=== PATIENT | male | born 1975 | race Caucasian/White ===

== ENCOUNTER 2016-05-15 06:02 | Emergency (ER) | payer OTHER, BC ==
[~2016-05-15 06:02] MED LIST: AMBI5TAB PO; ATOR1TAB21 PO; FISH1000 OR; GINKGO BILOBA PO; KRIL300C PO; MULTIVIT PO; SIMV40TA2 OR; TRAM50TA2 PO; VITA500T OR; ZYRT10CA PO; aleve PO; probiotics PO
[2016-05-15] MEDS ORDERED: NAPROXEN 250 MG TAB As Ordered ONE (07:13)
--- NOTE | 2016-05-15 07:52 | EDDOCDS ---
Nurse's Notes [facility] Name: Pa Ham Age: 40 yrs Sex: Male : 1975 Arrival Date: 05/15/2016 Time: 06:02 Bed I2 / M2 Private MD: Diagnosis: Sprain of unspecified site of right knee Presentation: 05/15 06:16 Presenting complaint: Patient states: that about 24 hours ago while at work slipped on cz ice twisting right knee pt finished work and went home. tonight while working pt has had increasing pain and difficulty ambulating . pt had surgery on right knee one year ago and had ACL repair pt reports pain is where his incision site is and that knee is swollen. Adult Sepsis Screening: The patient does not have new or worsening altered mentation. Patient's respiratory rate is less than 22. Systolic blood pressure is greater than 100. Patient has a qSOFA score of 0- Negative Sepsis Screen. Suicide/Homicide risk assessment- the patient denies having any suicidal and/or homicidal ideations and does not present with any other emotional, behavioral or mental health complaints. 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 Transition of care: patient was not received from another setting of care. 06:16 Acuity: DAVIDA Level 4 cz 06:16 Method Of Arrival: Walkin/Carried/Asstd cz Triage Assessment: 06:22 General: Appears uncomfortable. Pain: Location: right knee Pain currently is 6 out of cz 10 on a pain scale. Pt Declines HIV testing. Historical: - Allergies: No known drug Allergies; - Home Meds: 1. atorvastatin oral oral once daily 2. vitamins - PMHx: Hypercholesterolemia; - PSHx: right knee surgery; Tonsillectomy; Hernia repair; f.b. removal right lower leg; c-6 c-7 spinal fusion; - Social history: Smoking status: Patient states former smoker of tobacco. No barriers to communication noted, The patient speaks fluent Spanish, Speaks appropriately for age. - Family history: Not pertinent. - : The pt / caregiver states he / she is not on anticoagulants. Home medication list is obtained from the patient. - Exposure Risk Screening:: None identified. Screenin:53 Screening information is obtained from the patient. Primary language is Spanish. Fall jam1 risk: No risks identified. Assistance ADL's: requires no assistance with activities of daily living. Abuse/DV Screen: The patient / caregiver reports he/she is: not in a situation that causes fear, pain or injury. Nutritional screening: No deficits noted. Exposure Risk Screening: None identified. Advance Directives: Currently, there is no health care proxy. There is no active DNR order. There is no living will. There is no Power of Social Secretary. Advance directive information has not previously been placed in an [facility] medical record. Further advance directive information is declined. home support is adequate. Assessment: 07:03 General: Appears in no apparent distress, Behavior is appropriate for age, cooperative. pml Pain: Location: right knee Pain currently is 7 out of 10 on a pain scale. Neurological: Level of Consciousness is awake, alert, Oriented to person, place, time. Cardiovascular: Capillary refill < 3 seconds. Respiratory: Airway is patent Respiratory effort is even, unlabored. GI: Abdomen is non- distended. Derm: Skin is pink, warm & dry. Musculoskeletal: Circulation, motion, and sensation intact Capillary refill < 3 seconds No deformity noted. 07:49 General: Appears in no apparent distress, Behavior is appropriate for age, cooperative. pml Pain: Location: right knee Pain currently is 7 out of 10 on a pain scale. Neurological: Level of Consciousness is awake, alert, Oriented to person, place, time. Cardiovascular: Capillary refill < 3 seconds. Respiratory: Airway is patent Respiratory effort is even, unlabored. Derm: Skin is pink, warm & dry. Musculoskeletal: Circulation, motion, and sensation intact. Vital Signs: 06:22 BP 131 / 77; Pulse 88; Resp 16; Temp 95.9; Pulse Ox 96% ; Weight 102.06 kg; Height 5 cz ft. 10 in. (177.80 cm); 07:49 BP 128 / 71; Pulse 76; Resp 18; Temp 97.4; Pulse Ox 97% ; Pain 7/10; pml 06:22 Body Mass Index 32.28 (102.06 kg, 177.80 cm) Vitals: 06:22 Log In Time: May 15, 2016 at 06:04. ED Course: 06:04 Patient visited by Marquita Power RegGonzalo hs2 06:04 Patient moved to Waiting hs2 06:13 Patient moved to Triage 1 cz 06:19 Triage Initiated cz 06:27 Patient moved to Pre RCE cz 06:48 Patient moved to I2 / M2 jam1 06:53 Pt greeted and oriented to ED. Patient advised of names of staff involved in care, jam1 location of call bardales, wait times and NPO status. Patient has correct armband on for positive identification. Placed in gown. Bed in low position. Call light in reach. Side rails up X 1. Door closed. 07:03 Carolina Santillan PA-C is PHCP. ef1 07:03 The patient / caregiver is instructed regarding the plan of care and ED course. pml 07:04 Paulina Driscoll MD is Attending Physician. ef1 07:04 Patient visited by Carolina Santillan PA-C. ef1 07:04 Patient visited by Diana Orellana RN. pml 07:34 [facility] Payment Agreement was scanned into [employer] and attached to record. mm15 07:39 Patient visited by Carolina Santillan PA-C. ef1 07:40 [facility] ef1 07:49 No IV's were initiated during this patient's visit. No procedures done that require pml assistance. Knee immobilizer applied on right knee. Patient with positive distal sensation and brisk distal capillary refill after application. Administered Medications: 07:15 Drug: Naproxen 500 mg [naproxen 250 mg tablet (2 tabs)] Route: PO; pml 07:50 Follow up: Response: Pt left department before re-evaluation is appropriate pml Order Results: There are currently no results for this order. Outcome: 07:40 Discharge ordered by Provider. ef1 07:49 Discharge Assessment: Patient awake, alert and oriented x 3. No cognitive and/or pml functional deficits noted. Patient verbalized understanding of disposition instructions. patient administered narcotics - no. The following High Risk Discharge criteria are identified: None. Discharged to home ambulatory, with crutches. Condition: good Condition: stable. Discharge instructions given to patient, Instructed on discharge instructions, follow up and referral plans. medication usage, crutch walking, Demonstrated understanding of instructions, crutch walking, medications, Pt was receptive of discharge instructions/ teaching. Prescriptions given X 1. No special radiology studies were completed. Property sent home with patient. 07:51 Patient left the ED. pml Signatures: David Reed RN RN Meghna Guerrero, ONION TIER ONION TIER jam1 Carolina Santillan, PA-C PA-C ef1 Diana Orellana,RN RN pml Jaye Holguin mm15 Marquita Power, Reg Reg hs2 MTDD
--- NOTE | 2016-05-15 07:52 | EDDOCDS ---
Physician Documentation [facility] Name: Pa Ham Age: 40 yrs Sex: Male : 1975 Arrival Date: 05/15/2016 Time: 06:02 Bed I2 / M2 Private MD: Disposition: 05/15/16 07:40 Discharged to Home/Self Care. Impression: Sprain of unspecified site of right knee. - Condition is Stable. - Discharge Instructions: Knee Sprain, [id number]. - Prescriptions for Mobic 7.5 mg Oral Tablet - take 1 tablet by ORAL route once daily take with food; 20 tablet. - Work Release Form - 5 day, Medication Reconciliation, Local Pharmacy Hours form. - Follow up: [facility]; When: 1 - 2 days; Reason: Further diagnostic work-up, Recheck today's complaints, Continuance of care. Follow up: Emergency Department; Reason: Worsening of conditions. - Problem is new. - Symptoms have improved. Historical: - Allergies: No known drug Allergies; - Home Meds: 1. atorvastatin oral oral once daily 2. vitamins - PMHx: Hypercholesterolemia; - PSHx: right knee surgery; Tonsillectomy; Hernia repair; f.b. removal right lower leg; c-6 c-7 spinal fusion; - Social history: Smoking status: Patient states former smoker of tobacco. No barriers to communication noted, The patient speaks fluent Stateless, Speaks appropriately for age. - Family history: Not pertinent. - : The pt / caregiver states he / she is not on anticoagulants. Home medication list is obtained from the patient. - Exposure Risk Screening:: None identified. Vital Signs: 05/15 06:22 BP 131 / 77; Pulse 88; Resp 16; Temp 95.9; Pulse Ox 96% ; Weight 102.06 kg / 225 lbs; cz Height 5 ft. 10 in. (177.80 cm); 07:49 BP 128 / 71; Pulse 76; Resp 18; Temp 97.4; Pulse Ox 97% ; Pain 7/10; pml 06:22 Body Mass Index 32.28 (102.06 kg, 177.80 cm) cz Procedures: 07:40 Fracture care/splinting: Splint applied to right knee using knee immobilizer, applied ef1 by tech. Examined by me, post splint application: neurovascular intact, 2+ distal pulses palpable, brisk capillary refill noted, Patient tolerated well. MDM: 06:56 Knee, Complete Ordered. EDMS 07:10 Ice Pack ordered. ef1 07:10 Naproxen 500 mg PO once; administer with food or milk ordered. ef1 07:30 Financial registration complete. mm15 07:34 [facility] Payment Agreement was scanned into [employer] and attached to record. mm15 07:39 Knee Immobilizer ordered. ef1 07:39 Crutches ordered. ef1 Administered Medications: 07:15 Drug: Naproxen 500 mg [naproxen 250 mg tablet (2 tabs)] Route: PO; pml 07:50 Follow up: Response: Pt left department before re-evaluation is appropriate pml Signatures: Dispatcher [employer] EDDavid Wolf RN RN cz Carolina Santillan, PA-C PA-C ef1 Diana Orellana RN RN pml Jaye Holguin mm15 The chart was reviewed and I authenticate all verbal orders and agree with the evaluation and treatment provided.Attachments: 07:34 [facility] Payment Agreement mm15 MTDD
--- NOTE | 2016-05-15 08:00 | REP ---
RIGHT KNEE: Five views. HISTORY: Trauma. FINDINGS: The patient is status post ACL repair and there is a metallic anchor along the posterolateral aspect of the distal femur. Bones, joints, and soft tissues are otherwise unremarkable. No fracture or subluxation is seen. IMPRESSION: Postoperative changes status post ACL repair. No fracture seen. Signed by Prosper Graves MD 05/15/2016 10:05 A
--- NOTE | 2016-05-17 08:52 | EDDOCDS ---
Physician Documentation [facility] Name: Pa Ham Age: 40 yrs Sex: Male : 1975 Arrival Date: 05/15/2016 Time: 06:02 Bed I2 / M2 Private MD: Disposition: 05/15/16 07:40 Discharged to Home/Self Care. Impression: Sprain of unspecified site of right knee. - Condition is Stable. - Discharge Instructions: Knee Sprain, [id number]. - Prescriptions for Mobic 7.5 mg Oral Tablet - take 1 tablet by ORAL route once daily take with food; 20 tablet. - Work Release Form - 5 day, Medication Reconciliation, Local Pharmacy Hours form. - Follow up: [facility]; When: 1 - 2 days; Reason: Further diagnostic work-up, Recheck today's complaints, Continuance of care. Follow up: Emergency Department; Reason: Worsening of conditions. - Problem is new. - Symptoms have improved. Historical: - Allergies: No known drug Allergies; - Home Meds: 1. atorvastatin oral oral once daily 2. vitamins - PMHx: Hypercholesterolemia; - PSHx: right knee surgery; Tonsillectomy; Hernia repair; f.b. removal right lower leg; c-6 c-7 spinal fusion; - Social history: Smoking status: Patient states former smoker of tobacco. No barriers to communication noted, The patient speaks fluent Cypriot, Speaks appropriately for age. - Family history: Not pertinent. - : The pt / caregiver states he / she is not on anticoagulants. Home medication list is obtained from the patient. - Exposure Risk Screening:: None identified. Vital Signs: 05/15 06:22 BP 131 / 77; Pulse 88; Resp 16; Temp 95.9; Pulse Ox 96% ; Weight 102.06 kg / 225 lbs; cz Height 5 ft. 10 in. (177.80 cm); 07:49 BP 128 / 71; Pulse 76; Resp 18; Temp 97.4; Pulse Ox 97% ; Pain 7/10; pml 06:22 Body Mass Index 32.28 (102.06 kg, 177.80 cm) cz Procedures: 07:40 Fracture care/splinting: Splint applied to right knee using knee immobilizer, applied ef1 by tech. Examined by me, post splint application: neurovascular intact, 2+ distal pulses palpable, brisk capillary refill noted, Patient tolerated well. MDM: 06:56 Knee, Complete Ordered. EDMS 07:10 Ice Pack ordered. ef1 07:10 Naproxen 500 mg PO once; administer with food or milk ordered. ef1 07:30 Financial registration complete. mm15 07:34 [facility] Payment Agreement was scanned into [employer] and attached to record. mm15 07:39 Knee Immobilizer ordered. ef1 07:39 Crutches ordered. ef1 17:33 T-Sheet-- Draft Copy was scanned into [employer] and attached to record. klr Administered Medications: 07:15 Drug: Naproxen 500 mg [naproxen 250 mg tablet (2 tabs)] Route: PO; pml 07:50 Follow up: Response: Pt left department before re-evaluation is appropriate pml Signatures: Dispatcher [employer] EDMS David Reed RN RN cz Carolina Santillan, PA-C PA-C ef1 Diana Orellana RN RN pml Jaye Holguin mm15 Mikayla Ibanez klr The chart was reviewed and I authenticate all verbal orders and agree with the evaluation and treatment provided.Attachments: 07:34 [facility] Payment Agreement mm15 17:33 T-Sheet-- Draft Copy klr Chart Complete MTDD
--- NOTE | 2016-05-17 08:52 | EDDOCDS ---
Nurse's Notes [facility] Name: Pa Ham Age: 40 yrs Sex: Male : 1975 Arrival Date: 05/15/2016 Time: 06:02 Bed I2 / M2 Private MD: Diagnosis: Sprain of unspecified site of right knee Presentation: 05/15 06:16 Presenting complaint: Patient states: that about 24 hours ago while at work slipped on cz ice twisting right knee pt finished work and went home. tonight while working pt has had increasing pain and difficulty ambulating . pt had surgery on right knee one year ago and had ACL repair pt reports pain is where his incision site is and that knee is swollen. Adult Sepsis Screening: The patient does not have new or worsening altered mentation. Patient's respiratory rate is less than 22. Systolic blood pressure is greater than 100. Patient has a qSOFA score of 0- Negative Sepsis Screen. Suicide/Homicide risk assessment- the patient denies having any suicidal and/or homicidal ideations and does not present with any other emotional, behavioral or mental health complaints. 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 Transition of care: patient was not received from another setting of care. 06:16 Acuity: DAVIDA Level 4 cz 06:16 Method Of Arrival: Walkin/Carried/Asstd cz Triage Assessment: 06:22 General: Appears uncomfortable. Pain: Location: right knee Pain currently is 6 out of cz 10 on a pain scale. Pt Declines HIV testing. Historical: - Allergies: No known drug Allergies; - Home Meds: 1. atorvastatin oral oral once daily 2. vitamins - PMHx: Hypercholesterolemia; - PSHx: right knee surgery; Tonsillectomy; Hernia repair; f.b. removal right lower leg; c-6 c-7 spinal fusion; - Social history: Smoking status: Patient states former smoker of tobacco. No barriers to communication noted, The patient speaks fluent Romansh, Speaks appropriately for age. - Family history: Not pertinent. - : The pt / caregiver states he / she is not on anticoagulants. Home medication list is obtained from the patient. - Exposure Risk Screening:: None identified. Screenin:53 Screening information is obtained from the patient. Primary language is Romansh. Fall jam1 risk: No risks identified. Assistance ADL's: requires no assistance with activities of daily living. Abuse/DV Screen: The patient / caregiver reports he/she is: not in a situation that causes fear, pain or injury. Nutritional screening: No deficits noted. Exposure Risk Screening: None identified. Advance Directives: Currently, there is no health care proxy. There is no active DNR order. There is no living will. There is no Power of Embedded Software Developer. Advance directive information has not previously been placed in an [facility] medical record. Further advance directive information is declined. home support is adequate. Assessment: 07:03 General: Appears in no apparent distress, Behavior is appropriate for age, cooperative. pml Pain: Location: right knee Pain currently is 7 out of 10 on a pain scale. Neurological: Level of Consciousness is awake, alert, Oriented to person, place, time. Cardiovascular: Capillary refill < 3 seconds. Respiratory: Airway is patent Respiratory effort is even, unlabored. GI: Abdomen is non- distended. Derm: Skin is pink, warm & dry. Musculoskeletal: Circulation, motion, and sensation intact Capillary refill < 3 seconds No deformity noted. 07:49 General: Appears in no apparent distress, Behavior is appropriate for age, cooperative. pml Pain: Location: right knee Pain currently is 7 out of 10 on a pain scale. Neurological: Level of Consciousness is awake, alert, Oriented to person, place, time. Cardiovascular: Capillary refill < 3 seconds. Respiratory: Airway is patent Respiratory effort is even, unlabored. Derm: Skin is pink, warm & dry. Musculoskeletal: Circulation, motion, and sensation intact. Vital Signs: 06:22 BP 131 / 77; Pulse 88; Resp 16; Temp 95.9; Pulse Ox 96% ; Weight 102.06 kg; Height 5 cz ft. 10 in. (177.80 cm); 07:49 BP 128 / 71; Pulse 76; Resp 18; Temp 97.4; Pulse Ox 97% ; Pain 7/10; pml 06:22 Body Mass Index 32.28 (102.06 kg, 177.80 cm) Vitals: 06:22 Log In Time: May 15, 2016 at 06:04. ED Course: 06:04 Patient visited by Marquita Power RegGonzalo hs2 06:04 Patient moved to Waiting hs2 06:13 Patient moved to Triage 1 cz 06:19 Triage Initiated cz 06:27 Patient moved to Pre RCE cz 06:48 Patient moved to I2 / M2 jam1 06:53 Pt greeted and oriented to ED. Patient advised of names of staff involved in care, jam1 location of call bardales, wait times and NPO status. Patient has correct armband on for positive identification. Placed in gown. Bed in low position. Call light in reach. Side rails up X 1. Door closed. 07:03 Carolina Santillan PA-C is PHCP. ef1 07:03 The patient / caregiver is instructed regarding the plan of care and ED course. pml 07:04 Paulina Driscoll MD is Attending Physician. ef1 07:04 Patient visited by Carolina Santillan PA-C. ef1 07:04 Patient visited by Diana Orellana RN. pml 07:34 [facility] Payment Agreement was scanned into [employer] and attached to record. mm15 07:39 Patient visited by Carolina Santillan PA-C. ef1 07:40 [facility]. ef1 07:49 No IV's were initiated during this patient's visit. No procedures done that require pml assistance. Knee immobilizer applied on right knee. Patient with positive distal sensation and brisk distal capillary refill after application. 07:56 Patient name changed from aP\S\\S\Jitendra\S\ to Pa\S\ \S\[place]. EDMS 08:12 Knee, Complete Returned. EDMS 17:33 T-Sheet-- Draft Copy was scanned into [employer] and attached to record. klr Administered Medications: 07:15 Drug: Naproxen 500 mg [naproxen 250 mg tablet (2 tabs)] Route: PO; pml 07:50 Follow up: Response: Pt left department before re-evaluation is appropriate pml Order Results: Radiology Order: Knee, Complete Test: Knee, Complete REASON FOR EXAMINATION: Trauma; RIGHT KNEE: Five views.; ; HISTORY: Trauma.; ; FINDINGS: The patient is status post ACL repair and there is a metallic anchor; along the posterolateral aspect of the distal femur. Bones, joints, and soft; tissues are otherwise unremarkable. No fracture or subluxation is seen.; ; IMPRESSION: Postoperative changes status post ACL repair. No fracture seen.; ; ; Signed by; Prosper Graves MD 05/15/2016 10:05 A; Outcome: 07:40 Discharge ordered by Provider. ef1 07:49 Discharge Assessment: Patient awake, alert and oriented x 3. No cognitive and/or pml functional deficits noted. Patient verbalized understanding of disposition instructions. patient administered narcotics - no. The following High Risk Discharge criteria are identified: None. Discharged to home ambulatory, with crutches. Condition: good Condition: stable. Discharge instructions given to patient, Instructed on discharge instructions, follow up and referral plans. medication usage, crutch walking, Demonstrated understanding of instructions, crutch walking, medications, Pt was receptive of discharge instructions/ teaching. Prescriptions given X 1. No special radiology studies were completed. Property sent home with patient. 07:51 Patient left the ED. pml Signatures: Dispatcher [employer] EDMS David Reed RN RN Meghna Guerrero, RENT AND HOUSING INVESTIGATOR RENT AND HOUSING INVESTIGATOR jam1 Carolina Santillan PAJelena PA-Earnestine ef1 Diana Orellana RN RN pml Jaye Holguin mm15 Marquita Power, Reg Reg hs2 Mikayla Ibanez Chart Complete MTDD
--- NOTE | 2016-05-17 08:52 | EDDOCDS ---
Physician Documentation [facility] Name: Pa Ham Age: 40 yrs Sex: Male : 1975 Arrival Date: 05/15/2016 Time: 06:02 Bed I2 / M2 Private MD: Disposition: 05/15/16 07:40 Discharged to Home/Self Care. Impression: Sprain of unspecified site of right knee. - Condition is Stable. - Discharge Instructions: Knee Sprain, [id number]. - Prescriptions for Mobic 7.5 mg Oral Tablet - take 1 tablet by ORAL route once daily take with food; 20 tablet. - Work Release Form - 5 day, Medication Reconciliation, Local Pharmacy Hours form. - Follow up: [facility]; When: 1 - 2 days; Reason: Further diagnostic work-up, Recheck today's complaints, Continuance of care. Follow up: Emergency Department; Reason: Worsening of conditions. - Problem is new. - Symptoms have improved. Historical: - Allergies: No known drug Allergies; - Home Meds: 1. atorvastatin oral oral once daily 2. vitamins - PMHx: Hypercholesterolemia; - PSHx: right knee surgery; Tonsillectomy; Hernia repair; f.b. removal right lower leg; c-6 c-7 spinal fusion; - Social history: Smoking status: Patient states former smoker of tobacco. No barriers to communication noted, The patient speaks fluent Ugandan, Speaks appropriately for age. - Family history: Not pertinent. - : The pt / caregiver states he / she is not on anticoagulants. Home medication list is obtained from the patient. - Exposure Risk Screening:: None identified. Vital Signs: 05/15 06:22 BP 131 / 77; Pulse 88; Resp 16; Temp 95.9; Pulse Ox 96% ; Weight 102.06 kg / 225 lbs; cz Height 5 ft. 10 in. (177.80 cm); 07:49 BP 128 / 71; Pulse 76; Resp 18; Temp 97.4; Pulse Ox 97% ; Pain 7/10; pml 06:22 Body Mass Index 32.28 (102.06 kg, 177.80 cm) cz Procedures: 07:40 Fracture care/splinting: Splint applied to right knee using knee immobilizer, applied ef1 by tech. Examined by me, post splint application: neurovascular intact, 2+ distal pulses palpable, brisk capillary refill noted, Patient tolerated well. MDM: 06:56 Knee, Complete Ordered. EDMS 07:10 Ice Pack ordered. ef1 07:10 Naproxen 500 mg PO once; administer with food or milk ordered. ef1 07:30 Financial registration complete. mm15 07:34 [facility] Payment Agreement was scanned into [employer] and attached to record. mm15 07:39 Knee Immobilizer ordered. ef1 07:39 Crutches ordered. ef1 17:33 T-Sheet-- Draft Copy was scanned into [employer] and attached to record. klr Administered Medications: 07:15 Drug: Naproxen 500 mg [naproxen 250 mg tablet (2 tabs)] Route: PO; pml 07:50 Follow up: Response: Pt left department before re-evaluation is appropriate pml Signatures: Dispatcher [employer] EDMS David Reed RN RN cz Carolina Santillan, PA-C PA-C ef1 Diana Orellana RN RN pml Jaye Holguin mm15 Mikayla Ibanez klr The chart was reviewed and I authenticate all verbal orders and agree with the evaluation and treatment provided.Attachments: 07:34 [facility] Payment Agreement mm15 17:33 T-Sheet-- Draft Copy klr Chart Complete MTDD
== END 2016-05-15 07:51 | disposition home or self-care (01) ==
LOC: M ED 06:02
DX: S83.91XA Sprain of unspecified site of right knee, initial encounter (principal); W00.9XXA Unspecified fall due to ice and snow, initial encounter; Y92.89 Other specified places as the place of occurrence of the external cause; Y93.89 Activity, other specified; Y99.0 Civilian activity done for income or pay; E78.00 Pure hypercholesterolemia, unspecified; Z98.1 Arthrodesis status; Z90.89 Acquired absence of other organs; Z87.891 Personal history of nicotine dependence; Z79.899 Other long term (current) drug therapy

== ENCOUNTER → 2017-06-27 | Outpatient (REF) | payer BC ==
[2017-06-27 14:38] LABS: TOTAL 25(OH) VITAMIN D 34.3 NG/ML (30.0-100.0)
[2017-06-27 14:42] LABS: FREE T4 0.79 NG/DL (0.76-1.46)
== END ==
LOC: M LABNEURO 11:03
DX: E55.9 Vitamin D deficiency, unspecified (principal); E53.8 Deficiency of other specified B group vitamins; R41.0 Disorientation, unspecified; R41.3 Other amnesia
CPT/HCPCS: 84443

== ENCOUNTER → 2017-12-20 | Outpatient (CLI) | payer BC | LOC: M WUC 09:08 | DX: M77.32 Calcaneal spur, left foot (principal); M85.871 Other specified disorders of bone density and structure, right ankle and foot | CPT/HCPCS: 73630 ==

== ENCOUNTER → 2018-05-11 | Outpatient (CLI) | payer OTHER ==
[2018-05-11 15:38] LABS: BASO % 0.1 % (0.0-1.0); EOS # 0.2 10^3/uL (0.0-0.50); EOS % 3.2 % (0.0-3.0); HEMATOCRIT 43.6 % (42.0-52.0); HEMOGLOBIN 14.8 g/dl (13.5-17.5); LYMPH # 1.9 10^3/uL (1.5-4.5); LYMPH % 26.9 % (24.0-44.0); MEAN CORPUSCULAR HEMOGLOBIN 28.7 pg (27.0-33.0); MEAN CORPUSCULAR HGB CONC 33.9 g/dl (32.0-36.5); MEAN CORPUSCULAR VOLUME 84.7 fl (80.0-96.0); MONO # 0.6 10^3/uL (0.0-0.8); MONO % 8.9 % (0.0-5.0); NEUTROPHILS # 4.3 10^3/uL (1.8-7.7); NEUTROPHILS % 60.8 % (36.0-66.0); PLATELET COUNT, AUTOMATED 281 10^3/uL (150-450); RED BLOOD COUNT 5.15 10^6/uL (4.30-6.10); WHITE BLOOD COUNT 7.1 10^3/uL (4.0-10.0)
[2018-05-11 19:41] LABS: ERYTHROCYTE SEDIMENTATION RATE 5 mm/hr (0-15)
== END ==
LOC: M LAB 14:57
PROVIDERS: ATTEND Physician Assistant
DX: M25.561 Pain in right knee (principal)

== ENCOUNTER 2019-09-01 06:35 | Emergency (ER) | payer OTHER ==
[~2019-09-01] VITALS: Ht 177.8 cm; Wt 100.0 kg
[2019-09-01] MEDS ORDERED: LISI10TA4 (06:55)
[2019-09-01 07:00] LABS: BASO % 0.3 % (0.0-1.0); EOS # 0.3 10^3/uL (0.0-0.5); EOS % 3.9 % (0.0-3.0); HEMATOCRIT 44.2 % (42.0-52.0); HEMOGLOBIN 15.2 g/dl (13.5-17.5); LYMPH # 2.3 10^3/uL (1.5-5.0); LYMPH % 29.3 % (24.0-44.0); MEAN CORPUSCULAR HEMOGLOBIN 29.1 pg (27.0-33.0); MEAN CORPUSCULAR HGB CONC 34.4 g/dl (32.0-36.5); MEAN CORPUSCULAR VOLUME 84.7 fl (80.0-96.0); MONO # 0.6 10^3/uL (0.0-0.8); MONO % 7.3 % (0.0-5.0); NEUTROPHILS # 4.7 10^3/uL (1.5-8.5); NEUTROPHILS % 59.1 % (36.0-66.0); PLATELET COUNT, AUTOMATED 258 10^3/uL (150-450); RED BLOOD COUNT 5.22 10^6/uL (4.30-6.10)
[2019-09-01] MEDS ORDERED: ONDANSETRON 4MG/2ML VIAL IV ONE (07:15)
[2019-09-01] MEDS ORDERED: NS 1,000 ML IV ONE (07:15)
[2019-09-01] MEDS ORDERED: MORPHINE 4 MG/ML 1ML VIAL/SYRINGE (J2270) IV ONE (07:15)
[2019-09-01 07:34] LABS: ALT/SGPT 34 U/L (12-78); BILIRUBIN,DIRECT < 0.1 MG/DL (0.0-0.2); BILIRUBIN,TOTAL 0.2 MG/DL (0.2-1.0); CK-MB VALUE MASS < 1.0 NG/ML (<3.6); CPK CREATINE PHOSPHOKINASE 217 U/L (39-308); FREE T4 1.25 NG/DL (0.76-1.46); LIPASE 129 U/L (73-393); MB/CK RELATIVE INDEX 0.46 (< OR =4); TOTAL PROTEIN 7.2 GM/DL (6.4-8.2)
[2019-09-01] MEDS ORDERED: ASPIRIN 81 MG CHEW TABLET PO ONE (08:00)
[2019-09-01] MEDS ORDERED: PANTOPRAZOLE 40MG VIAL (C9113 PER 1) IV ONE (08:00)
--- NOTE | 2019-09-01 08:21 | REP ---
Clinical: Chest pain . Comparison: 08/04/2015 . Findings: Examination is somewhat limited by underpenetration, poor inspiratory effort. And portable technique. The mediastinum and cardiac silhouette are stable and within normal limits for portable technique. The lung lock are clear without acute consolidation, effusion, or pneumothorax. Skeletal structures are intact. Impression: No acute cardiopulmonary process appreciated. Electronically Signed by Gael Dow MD 09/01/2019 08:12 A
[2019-09-01] MEDS ORDERED: ISOVUE-370 76% 100ML VIAL As Ordered ONE (08:22)
--- NOTE | 2019-09-01 09:10 | REP ---
Clinical: Severe clenching chest pain radiating to the back. Technique: Axial angiographic images from the thoracic inlet to the upper abdomen followed by CT of the abdomen and pelvis with coronal and sagittal re-formations and MIP reconstructions. 100 ml Isovue 370 intravenous contrast material administered without complication. Findings: Thoracic aorta is intact and normal. There is no evidence for thoracic aortic aneurysm or dissection. The pulmonary vasculature appear relatively normal and without obvious pulmonary embolus. Heart and pericardium are normal without cardiomegaly or pericardial effusion. The bilateral lung lock are well-aerated and clear. No consolidation, effusion, or pneumothorax. Tracheobronchial tree is patent. No axillary, hilar, or mediastinal adenopathy. Surrounding musculoskeletal structures of the thorax appear intact without focal osseous abnormality. Impression: 1. Normal thoracic aorta without aneurysm or dissection. 2. No acute mediastinal or pleuroparenchymal process appreciated. Electronically Signed by Gael Dow MD 09/01/2019 09:02 A
--- NOTE | 2019-09-01 09:11 | REP ---
Clinical: Severe chest pain radiating to the back and epigastrium . Technique: Axial angiographic images from the lung bases to the pubic symphysis with coronal and sagittal re-formations and MIP reconstructions. 100 ml Isovue 370 intravenous contrast material administered without complication. Findings: Abdominal aorta and associated branch vessels are normal. There is no evidence for abdominal aortic aneurysm or dissection. No periaortic inflammatory stranding, fluid or adenopathy noted. No evidence for atherosclerotic disease. Liver, spleen, pancreas, gallbladder, bilateral adrenal glands and kidneys are essentially normal. Few renal hypodensities likely represent simple cysts and consistent with findings on prior exam dated 2014. The enteric system is without obstruction or acute inflammatory process. Normal terminal ileum and appendix are identified in the right lower quadrant. Pelvis demonstrates normal bladder and age-appropriate prostate/seminal vesicles. No ascites. No free air. No adenopathy. Surrounding musculoskeletal structures are intact without focal osseous abnormality. Impression: 1. Normal abdominal aorta and branch vessels without aneurysm or dissection, and no evidence for atherosclerotic disease. 2. No acute abdominopelvic pathology appreciated. Electronically Signed by Gael Dow MD 09/01/2019 09:03 A
[2019-09-01 09:12] VITALS: BP 145/94
[2019-09-01] MEDS ORDERED: GI COCKTAIL 50ML BTL(HYOSCYAMINE/MAALOX/LIDOCAINE VISCOUS)(1:3:1) PO ONE (09:15)
[2019-09-01] MEDS ORDERED: lisinopriL 10 MG TAB PO ONE (09:15)
[2019-09-01 09:20] VITALS: BP 142/92
[2019-09-01] MEDS ORDERED: OMEP40CA97 PO (10:13)
--- NOTE | 2019-09-01 12:57 | ECGEPIP ---
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
== END 2019-09-01 09:20 | disposition home or self-care (01) ==
LOC: M ED 06:35
DX: K30 Functional dyspepsia (principal); R00.1 Bradycardia, unspecified; R11.0 Nausea; I10 Essential (primary) hypertension; E78.5 Hyperlipidemia, unspecified; Z87.442 Personal history of urinary calculi; Z98.1 Arthrodesis status; Z87.891 Personal history of nicotine dependence
CPT/HCPCS: 36415; 71045; 71275; 74177; 80047; 80076; 82553; 83690; 84439; 84443; 84484; 85025; 93005; 93041; 94760; 96361; 96374; 96375; 99284; C9113; J2270; J2405; Q9967

== ENCOUNTER 2019-10-01 01:23 | Emergency (ER) | payer OTHER ==
[~2019-10-01] VITALS: Ht 180.3 cm; Wt 102.3 kg
[~2019-10-01 01:23] MED LIST changes: +LISI10TA4; +OMEP40CA97 PO
[2019-10-01 01:52] LABS: BASO % 0.3 % (0.0-1.0); EOS # 0.4 10^3/uL (0.0-0.5); EOS % 5.8 % (0.0-3.0); HEMATOCRIT 45.5 % (42.0-52.0); HEMOGLOBIN 15.3 g/dl (13.5-17.5); LYMPH # 2.8 10^3/uL (1.5-5.0); LYMPH % 43.3 % (24.0-44.0); MEAN CORPUSCULAR HEMOGLOBIN 28.7 pg (27.0-33.0); MEAN CORPUSCULAR HGB CONC 33.6 g/dl (32.0-36.5); MEAN CORPUSCULAR VOLUME 85.4 fl (80.0-96.0); MONO # 0.7 10^3/uL (0.0-0.8); NEUTROPHILS # 2.7 10^3/uL (1.5-8.5); NEUTROPHILS % 40.6 % (36.0-66.0); PLATELET COUNT, AUTOMATED 264 10^3/uL (150-450); RED BLOOD COUNT 5.33 10^6/uL (4.30-6.10); WHITE BLOOD COUNT 6.5 10^3/uL (4.0-10.0)
[2019-10-01] MEDS ORDERED: GI COCKTAIL 50ML BTL(HYOSCYAMINE/MAALOX/LIDOCAINE VISCOUS)(1:3:1) PO ONE (03:15)
[2019-10-01] MEDS ORDERED: CARA1TAB6 PO (04:14)
[2019-10-01] MEDS ORDERED: PEPC1TAB5 PO (04:14)
[2019-10-01] MEDS ORDERED: FAMOTIDINE 20 MG TAB PO ONE (04:15)
[2019-10-01] MEDS ORDERED: SUCRALFATE 1 GM TAB PO ONE (04:15)
[2019-10-01 04:47] VITALS: BP 139/87
--- NOTE | 2019-10-01 11:22 | REP ---
Portable chest x-ray: Single view. History: Chest pain. Comparison study: September 01, 2019. Findings: A cervical spine fusion device is seen projecting over the C7 vertebral body unchanged. No other acute bony abnormality is seen. The heart is not enlarged. Lung lock are well inflated and free of infiltrate. Pleural angles are sharp. Pulmonary vasculature is not increased. Impression: No active disease. Electronically Signed by Prosper Graves MD 10/01/2019 07:51 A
--- NOTE | 2019-10-01 16:16 | ECGEPIP ---
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
== END 2019-10-01 04:48 | disposition home or self-care (01) ==
LOC: M ED 01:23
DX: K21.9 Gastro-esophageal reflux disease without esophagitis (principal); I10 Essential (primary) hypertension; E78.5 Hyperlipidemia, unspecified; Z79.899 Other long term (current) drug therapy

== ENCOUNTER → 2021-03-19 | Outpatient (CLI) | payer OTHER ==
[~2021-03-19] MED LIST changes: +CARA1TAB6 PO; +LISI10TA22; -LISI10TA4; +OMEP40CA4 PO; -OMEP40CA97 PO; +PEPC1TAB5 PO
--- NOTE | 2021-03-19 09:02 | REP ---
INDICATION: PAIN. COMPARISON: None. TECHNIQUE: AP, lateral and swimmer's views of the cervical spine FINDINGS: Straightening of normal lordosis. Discectomy and fixation at C6-7 noted. Moderate degenerative changes include endplate sclerosis and osteophytosis at C4-5 and C5-6. No acute fracture/compression injury or acute subluxation. IMPRESSION: Multilevel changes as described above. <Electronically signed by Gael Dow > 03/19/21 [id number]
== END ==
LOC: M LAB 08:41
PROVIDERS: ATTEND Psychiatry & Neurology Neurology
DX: G89.29 Other chronic pain (principal); M50.321 Other cervical disc degeneration at C4-C5 level; M50.322 Other cervical disc degeneration at C5-C6 level

== ENCOUNTER → 2022-01-11 | Outpatient (CLI) | payer OTHER | LOC: M PAIN 09:00 | PROVIDERS: ATTEND Nurse Practitioner Family | DX: M96.1 Postlaminectomy syndrome, not elsewhere classified (principal); F17.290 Nicotine dependence, other tobacco product, uncomplicated; Z79.899 Other long term (current) drug therapy ==

== ENCOUNTER → 2022-01-28 | Outpatient (CLI) | payer OTHER | LOC: M PAIN 10:15 | PROVIDERS: ATTEND Nurse Practitioner Family | DX: M50.10 Cervical disc disorder with radiculopathy, unspecified cervical region (principal); M96.1 Postlaminectomy syndrome, not elsewhere classified; R51.9 Headache, unspecified; E78.5 Hyperlipidemia, unspecified; M25.511 Pain in right shoulder; H53.9 Unspecified visual disturbance; Z87.891 Personal history of nicotine dependence; Z79.899 Other long term (current) drug therapy ==

== ENCOUNTER → 2022-05-09 | Outpatient (CLI) | payer OTHER | LOC: M LABSMTC 11:24 | PROVIDERS: ATTEND Anesthesiology | DX: Z01.812 Encounter for preprocedural laboratory examination (principal); Z11.52 Encounter for screening for COVID-19 ==

== ENCOUNTER → 2022-05-10 | Outpatient (CLI) | payer OTHER ==
[~2022-05-10] MED LIST changes: +ISOVUE-M 300 61% 15ML VIAL As Ordered ONE; +LIDOCAINE 1% SDV 30ML VIAL As Ordered ONE; +NORCO, ANEXSIA 5/325MG TABLET (HYDROcodone/ACETAMINOPHEN) As Ordered ONE; +diazePAM 5MG TABLET As Ordered ONE; +methylPREDNISolone SUSP 40MG/ML 1ML VIAL (DEPO MEDROL) As Ordered ONE
== END ==
LOC: M PAIN 08:15
PROVIDERS: ATTEND Anesthesiology
DX: M50.10 Cervical disc disorder with radiculopathy, unspecified cervical region (principal); R51.9 Headache, unspecified; E78.5 Hyperlipidemia, unspecified; M25.511 Pain in right shoulder; Z87.891 Personal history of nicotine dependence; Z79.899 Other long term (current) drug therapy
CPT/HCPCS: 62321; J1030

== ENCOUNTER → 2022-06-08 | Outpatient (CLI) | payer OTHER ==
[~2022-06-08] MED LIST changes: -ISOVUE-M 300 61% 15ML VIAL As Ordered ONE; -LIDOCAINE 1% SDV 30ML VIAL As Ordered ONE; -NORCO, ANEXSIA 5/325MG TABLET (HYDROcodone/ACETAMINOPHEN) As Ordered ONE; -diazePAM 5MG TABLET As Ordered ONE; -methylPREDNISolone SUSP 40MG/ML 1ML VIAL (DEPO MEDROL) As Ordered ONE
== END ==
LOC: M PAIN 10:30
PROVIDERS: ATTEND Nurse Practitioner Family
DX: M96.1 Postlaminectomy syndrome, not elsewhere classified (principal); G89.29 Other chronic pain; Z87.891 Personal history of nicotine dependence; Z79.899 Other long term (current) drug therapy

== ENCOUNTER 2022-07-16 20:13 | Emergency (ER) | payer BC ==
[~2022-07-16] VITALS: Ht 180.3 cm; Wt 102.3 kg
[2022-07-16] MEDS ORDERED: ASPIRIN 81MG CHEW TABLET PO ONE (20:40)
[2022-07-16 21:06] LABS: BASO % 0.1 % (0.0-1.0); EOS # 0.4 10^3/uL (0.0-0.5); EOS % 5.1 % (0.0-3.0); HEMATOCRIT 47.8 % (42.0-52.0); HEMOGLOBIN 16.4 g/dl (13.5-17.5); LYMPH # 2.1 10^3/uL (1.5-5.0); LYMPH % 26.5 % (24.0-44.0); MEAN CORPUSCULAR HEMOGLOBIN 28.8 pg (27.0-33.0); MEAN CORPUSCULAR HGB CONC 34.3 g/dl (32.0-36.5); MONO # 0.6 10^3/uL (0.0-0.8); MONO % 7.5 % (2.0-8.0); NEUTROPHILS # 4.9 10^3/uL (1.5-8.5); NEUTROPHILS % 60.7 % (36.0-66.0); PLATELET COUNT, AUTOMATED 274 10^3/uL (150-450); RED BLOOD COUNT 5.69 10^6/uL (4.30-6.10)
[2022-07-16 21:17] LABS: INR 0.87
[2022-07-16 21:25] LABS: CK-MB VALUE MASS < 1.0 NG/ML (<3.6)
[2022-07-16 21:28] LABS: ALBUMIN 4.4 G/DL (3.2-5.2); ALKALINE PHOSPHATASE 55 U/L (46-116); ALT/SGPT 41 U/L (7.0-40); AST/SGOT 38 U/L (<34); BILIRUBIN,DIRECT 0.2 MG/DL (<0.4); BILIRUBIN,TOTAL 0.6 MG/DL (0.3-1.2); BLOOD UREA NITROGEN 12 MG/DL (9-23); CALCIUM LEVEL 9.5 MG/DL (8.5-10.1); CARBON DIOXIDE LEVEL 29 MMOL/L (20-31); CHLORIDE LEVEL 105 MMOL/L (98-107); CPK CREATINE PHOSPHOKINASE 143 U/L (46-171); CREATININE FOR GFR 0.87 MG/DL (0.70-1.30); GLOMERULAR FILTRATION RATE > 60.0 (>60); GLUCOSE, FASTING 100 MG/DL (60-100); MB/CK RELATIVE INDEX 0.69 (< OR =4); POTASSIUM SERUM 4.3 MMOL/L (3.5-5.1); SODIUM LEVEL 140 MMOL/L (136-145); TOTAL PROTEIN 7.2 G/DL (5.7-8.2)
[2022-07-16 21:30] VITALS: BP 131/87
[2022-07-16 21:30] LABS: THYROID STIMULATING HORMONE 4.131 uIU/ML (0.55-4.78)
[2022-07-16] MEDS ORDERED: ISOVUE-370 76% 100ML VIAL As Ordered ONE (21:41)
[2022-07-16 22:17] LABS: CK-MB VALUE MASS < 1.0 NG/ML (<3.6)
[2022-07-16 22:18] LABS: CPK CREATINE PHOSPHOKINASE 137 U/L (46-171); MB/CK RELATIVE INDEX 0.72 (< OR =4)
== END 2022-07-16 22:43 | disposition home or self-care (01) ==
LOC: M ED 20:13
DX: R07.9 Chest pain, unspecified (principal); I10 Essential (primary) hypertension; E78.5 Hyperlipidemia, unspecified; M54.2 Cervicalgia; M25.519 Pain in unspecified shoulder; F17.200 Nicotine dependence, unspecified, uncomplicated; I25.10 Atherosclerotic heart disease of native coronary artery without angina pectoris; Z79.899 Other long term (current) drug therapy
CPT/HCPCS: 71046; 71275; 74177; 80048; 80076; 82550; 82553; 83690; 84439; 84443; 84484; 85025; 85610; 85730; 93005; 93041; 94760; 99285; Q9967

== ENCOUNTER → 2022-08-05 | Outpatient (CLI) | payer BC | LOC: M PAIN 14:30 | PROVIDERS: ATTEND Nurse Practitioner Family | DX: M96.1 Postlaminectomy syndrome, not elsewhere classified (principal); G89.29 Other chronic pain; Z87.891 Personal history of nicotine dependence; Z79.899 Other long term (current) drug therapy ==

== ENCOUNTER → 2022-08-25 | Outpatient (CLI) | payer BC ==
[2022-08-25 15:35] LABS: ALBUMIN 4.4 G/DL (3.2-5.2); ALKALINE PHOSPHATASE 50 U/L (46-116); ALT/SGPT 37 U/L (7.0-40); AST/SGOT 27 U/L (<34); BILIRUBIN,DIRECT 0.2 MG/DL (<0.4); BILIRUBIN,TOTAL 0.5 MG/DL (0.3-1.2); IRON (FE) 86 UG/DL (65-175); PERCENT SATURATION 30.2 % (19.7-50.0); TOTAL IRON BINDING CAPACITY 285 UG/DL (250-425); TOTAL PROTEIN 6.8 G/DL (5.7-8.2)
[2022-08-25 15:37] LABS: FERRITIN 99.2 NG/ML (10.5-307.3)
[2022-08-25 15:43] LABS: HEPATITIS B SURFACE ANTIBODY POSITIVE (POSITIVE)
[2022-08-25 15:54] LABS: HEPATITIS B SURFACE ANTIGEN NEGATIVE (NEGATIVE)
[2022-08-25 16:15] LABS: HEPATITIS C VIRUS ABY INDEX < 0.0 INDEX (<0.8)
[2022-08-25 17:52] LABS: STABLE ALKPHOS 24 U/L
[2022-08-25 17:53] LABS: LABILE ALKPHOS 26 U/L
[2022-08-25 17:54] LABS: % LABILE ALKALINE PHOSPHATASE 52 %
[2022-08-26 08:12] LABS: CERULOPLASMIN 20.3 mg/dL (16.0-31.0)
== END ==
LOC: M WUC 11:00
PROVIDERS: ATTEND Internal Medicine Gastroenterology
DX: K80.20 Calculus of gallbladder without cholecystitis without obstruction (principal); K76.0 Fatty (change of) liver, not elsewhere classified; R16.1 Splenomegaly, not elsewhere classified; R94.5 Abnormal results of liver function studies; K59.1 Functional diarrhea; E88.81 Metabolic syndrome and other insulin resistance

== ENCOUNTER → 2022-11-23 | Outpatient (CLI) | payer BC | LOC: M CARPUL 13:32 | PROVIDERS: ATTEND Internal Medicine Cardiovascular Disease | DX: I77.810 Thoracic aortic ectasia (principal); R07.9 Chest pain, unspecified ==

== ENCOUNTER → 2022-12-15 | Outpatient (REF) | payer BC | LOC: M LAB REF 10:11 | PROVIDERS: ATTEND Internal Medicine Gastroenterology | DX: K59.1 Functional diarrhea (principal); K76.0 Fatty (change of) liver, not elsewhere classified; R16.1 Splenomegaly, not elsewhere classified; K22.2 Esophageal obstruction ==

== ENCOUNTER → 2023-06-02 | Outpatient (CLI) | payer OTHER | LOC: M PAIN 09:30 | PROVIDERS: ATTEND Nurse Practitioner Family | DX: G89.29 Other chronic pain (principal); M96.1 Postlaminectomy syndrome, not elsewhere classified; M54.2 Cervicalgia; R51.9 Headache, unspecified; E78.5 Hyperlipidemia, unspecified; M25.511 Pain in right shoulder; Z87.891 Personal history of nicotine dependence; Z79.891 Long term (current) use of opiate analgesic; Z79.899 Other long term (current) drug therapy ==

== ENCOUNTER → 2024-02-16 | Outpatient (CLI) | payer OTHER | LOC: M PAIN 10:15 | PROVIDERS: ATTEND Nurse Practitioner Family | DX: M96.1 Postlaminectomy syndrome, not elsewhere classified (principal); G89.29 Other chronic pain; M54.2 Cervicalgia; E78.5 Hyperlipidemia, unspecified; M25.511 Pain in right shoulder; F17.290 Nicotine dependence, other tobacco product, uncomplicated; Z79.899 Other long term (current) drug therapy ==

== ENCOUNTER → 2024-03-16 | Outpatient (CLI) | payer OTHER | LOC: M PLARAD 13:47 | PROVIDERS: ATTEND Nurse Practitioner Family | DX: M96.1 Postlaminectomy syndrome, not elsewhere classified (principal); M50.221 Other cervical disc displacement at C4-C5 level ==

== ENCOUNTER → 2024-04-03 | Outpatient (CLI) | payer OTHER | LOC: M PAIN 08:30 | PROVIDERS: ATTEND Anesthesiology | DX: M50.11 Cervical disc disorder with radiculopathy, high cervical region (principal); R51.9 Headache, unspecified; E78.5 Hyperlipidemia, unspecified; M25.511 Pain in right shoulder; Z87.891 Personal history of nicotine dependence; Z79.899 Other long term (current) drug therapy; M47.812 Spondylosis without myelopathy or radiculopathy, cervical region; Z98.1 Arthrodesis status ==

== ENCOUNTER 2024-12-27 16:29 | Emergency (ER) | payer OTHER ==
[~2024-12-27] VITALS: Ht 180.3 cm; Wt 102.6 kg
[~2024-12-27 16:29] MED LIST changes: -AMBI5TAB PO; +ZOLP-532 PO
[2024-12-27 17:23] LABS: BASO # 0.0 10^3/uL (0.0-0.2); BASO % 0.3 % (0.0-1.0); EOS # 0.2 10^3/uL (0.0-0.5); EOS % 1.9 % (0.0-3.0); LYMPH # 2.2 10^3/uL (1.5-5.0); LYMPH % 25.1 % (24.0-44.0); MONO # 0.7 10^3/uL (0.0-0.8); MONO % 7.3 % (2.0-8.0); NEUTROPHILS # 5.8 10^3/uL (1.5-8.5); NEUTROPHILS % 65.2 % (36.0-66.0); PLATELET COUNT, AUTOMATED 285 10^3/uL (150-450)
[2024-12-27 17:47] LABS: CK-MB VALUE MASS < 1.0 NG/ML (<3.6)
[2024-12-27 17:48] LABS: ALT/SGPT 30 U/L (7.0-40); AST/SGOT 20 U/L (<34); CALCIUM LEVEL 9.7 MG/DL (8.5-10.1); CARBON DIOXIDE LEVEL 24 MMOL/L (20-31); CHLORIDE LEVEL 105 MMOL/L (98-107); CREATININE FOR GFR 1.02 MG/DL (0.70-1.30); GLOMERULAR FILTRATION RATE > 90.0 (>60); POTASSIUM SERUM 4.2 MMOL/L (3.5-5.1); SODIUM LEVEL 140 MMOL/L (136-145)
[2024-12-27 17:52] LABS: CPK CREATINE PHOSPHOKINASE 112 U/L (46-171)
[2024-12-27 18:50] LABS: CK-MB VALUE MASS < 1.0 NG/ML (<3.6)
[2024-12-27 18:51] LABS: CPK CREATINE PHOSPHOKINASE 102 U/L (46-171)
[2024-12-27] MEDS ORDERED: ISOVUE-370 76% 100 ML VIAL As Ordered ONE (19:01)
[2024-12-27 21:15] VITALS: O2SAT 96
[2024-12-27 23:09] VITALS: TEMP 97.4
[2024-12-27] MEDS ORDERED: AUGM500T34 PO (23:09)
[2024-12-27 23:10] VITALS: BP 138/73
[2024-12-27] MEDS: AUGMENTIN 500 MG TAB PO ONE (23:18)
== END 2024-12-27 23:21 | disposition home or self-care (01) ==
LOC: M ED 16:29
DX: K80.20 Calculus of gallbladder without cholecystitis without obstruction (principal); I10 Essential (primary) hypertension; E78.5 Hyperlipidemia, unspecified; K21.9 Gastro-esophageal reflux disease without esophagitis; Z87.442 Personal history of urinary calculi; K22.2 Esophageal obstruction; Z79.899 Other long term (current) drug therapy
CPT/HCPCS: 71260; 74177; 76705; 80048; 80076; 82550; 82553; 83690; 84484; 85025; 93005; 93041; 94760; 99285; Q9967

== ENCOUNTER → 2025-01-09 | Outpatient (CLI) | payer OTHER ==
[~2025-01-09] MED LIST changes: +AUGM500T34 PO
[2025-01-09 18:37] LABS: ALT/SGPT 30.0 U/L (7.0-40); AST/SGOT 16.0 U/L (<34)
== END ==
LOC: M WUC 15:19
PROVIDERS: ATTEND Internal Medicine Gastroenterology
DX: K21.9 Gastro-esophageal reflux disease without esophagitis (principal); K80.20 Calculus of gallbladder without cholecystitis without obstruction; K59.1 Functional diarrhea

== ENCOUNTER → 2025-02-08 | Outpatient (CLI) | payer OTHER ==
[~2025-02-08] MED LIST changes: +PROHANCE 279.3MG/ML 15ML VIAL As Ordered ONE; +PROHANCE 279.3MG/ML 5ML VIAL As Ordered ONE
== END ==
LOC: M RAD 07:41
PROVIDERS: ATTEND Internal Medicine Gastroenterology
DX: K80.20 Calculus of gallbladder without cholecystitis without obstruction (principal); K21.9 Gastro-esophageal reflux disease without esophagitis; K59.1 Functional diarrhea; R10.9 Unspecified abdominal pain; N28.1 Cyst of kidney, acquired
CPT/HCPCS: 74183; A9576

== ENCOUNTER → 2025-03-19 | Outpatient (CLI) | payer OTHER ==
[~2025-03-19] MED LIST changes: +E-Z-GAS II EFFERVESCENT PACKET (SODIUM BICARB./CITRIC ACID/SIMETHICONE) As Ordered ONE; +E-Z-HD 98% w/w 340 GM SUSP BTL As Ordered ONE; +E-Z-PAQUE 96% w/w SUSP 176 GM BTL As Ordered ONE; -PROHANCE 279.3MG/ML 15ML VIAL As Ordered ONE; -PROHANCE 279.3MG/ML 5ML VIAL As Ordered ONE
== END ==
LOC: M RAD 08:45
PROVIDERS: ATTEND Surgery
DX: R13.10 Dysphagia, unspecified (principal)